=== PATIENT | male | born 1980 | race Caucasian/White ===

== ENCOUNTER 2020-03-02 03:57 | Emergency (ER) | payer MEDICAID, OTHER ==
[~2020-03-02] VITALS: Ht 170.2 cm; Wt 128.0 kg
[~2020-03-02 03:57] MED LIST: OXYC-302 PO
[2020-03-02] MEDS ORDERED: FAMOTIDINE 20 MG TABLET PO ONE (05:00)
[2020-03-02] MEDS ORDERED: DIPHENHYDRAMINE 50 MG/ML, 1ML IM ONE (05:00)
[2020-03-02] MEDS ORDERED: FAMOTIDINE 20 MG TABLET ONE (05:02)
[2020-03-02] MEDS ORDERED: DIPHENHYDRAMINE 50 MG/ML, 1ML ONE (05:03)
[2020-03-02 06:16] VITALS: BP 116/84
== END 2020-03-02 06:18 | disposition home or self-care (01) ==
LOC: ED 04:16
DX: T78.3XXA Angioneurotic edema, initial encounter (principal); R22.0 Localized swelling, mass and lump, head
CPT/HCPCS: 96372; 99283; J1200; J7512